=== PATIENT | female | born 1970 | race African-American/Black ===

== ENCOUNTER 2017-04-14 18:05 | Emergency (ER) | payer OTHER ==
[~2017-04-14] VITALS: Ht 162.6 cm; Wt 74.8 kg
[2017-04-14 18:13] VITALS: BP_SYST 192
[2017-04-14] MEDS ORDERED: NITROGLYCERIN 0.4 MG TAB.SUBL SL ONE (18:15)
[2017-04-14] MEDS ORDERED: ASPIRIN 325 MG TABLET PO ONE (18:15)
[2017-04-14] MEDS ORDERED: MORPHINE 4 MG/ML INJ. SYRINGE IVP ONE (18:15)
--- NOTE | 2017-04-14 18:15 | NUR ---
Patient to ER bed 3 to gown for evaluation. Side rails up. Assumed care.
--- NOTE | 2017-04-14 18:17 | NUR ---
ER Veto Pérez at bedside examining patient.
--- NOTE | 2017-04-14 18:18 | NUR ---
Pt presents to ED c/o L sided breast pain 04/03 nonradiating.Mild SOB. Pt has h/o lupus,htn,fibromyalgia. Pt unable to tolertae laying flat.Pain increasing w/palpation.
--- NOTE | 2017-04-14 18:20 | NUR ---
Pain unresolved w/NTG. Dr. Page informed.
--- NOTE | 2017-04-14 18:30 | NUR ---
Pt reports resolving w/morphine. Continuing to monitor.
[2017-04-14 18:53] LABS: CALCIUM 9.6 mg/dL (8.4-11.0); CREATININE 0.87 mg/dL (0.55-1.30); POTASSIUM 3.7 mmol/L (3.5-5.1)
[2017-04-14 18:54] LABS: INR 0.9 (0.8-1.2); PROTHROMBIN TIME 9.9 SECS (9.5-12.5)
[2017-04-14 18:58] LABS: ALBUMIN 3.7 g/dL (3.4-4.8); TOTAL BILIRUBIN 0.3 mg/dL (0.0-1.0); TOTAL PROTEIN, SERUM 7.8 g/dL (6.4-8.3)
--- NOTE | 2017-04-14 19:00 | NUR ---
Pt reports pain 09/03. No acute distress noted.
[2017-04-14 19:02] LABS: BASOPHILS # (AUTO) 0.2 K/uL (0.0-0.2); BASOPHILS % (AUTO) 2.1 % (0.0-2.0); EOSINOPHILS # (AUTO) 0.1 K/uL (0.0-0.4); EOSINOPHILS % (AUTO) 1.3 % (0.0-4.0); HEMOGLOBIN 13.1 g/dL (12.0-16.0); LYMPHOCYTES # (AUTO) 2.1 K/uL (1.0-5.5); LYMPHOCYTES % (AUTO) 22.5 % (20.5-51.5); MEAN CORPUSCULAR HEMOGLOBIN 30 pg (27-31); MEAN CORPUSCULAR HGB CONC 33 % (32-36); MEAN CORPUSCULAR VOLUME 91 fL (79.0-98.0); MONOCYTES # (AUTO) 0.9 K/uL (0.0-1.0); MONOCYTES % (AUTO) 9.5 % (1.7-9.3); NEUTROPHILS # (AUTO) 6.1 K/uL (1.8-7.7); NEUTROPHILS % (AUTO) 64.6 % (40.0-70.0); PLATELET COUNT (AUTO) 275 K/uL (130-430); RED BLOOD CELL COUNT(AUTO) 4.41 MIL/uL (4.2-6.2); RED CELL DISTRIBUTION WIDTH 12.4 % (9.0-15.0); WHITE BLOOD COUNT (AUTO) 9.4 K/uL (4.8-10.8)
--- NOTE | 2017-04-14 19:10 | NUR ---
Received endorsement from BRIEN Hernandez.
--- NOTE | 2017-04-14 19:15 | NUR ---
Patient AOx4, ambulatory, presents to ED with complaint of left chest pain 10/10 x1 hour. Patient states the pain is new onset. Patient has hx of HTN, Lupus, and fibromyalgia. No rash noted to under left breast. Patient states pain level is now a 1/10 post Morphine administration. Patient resting comfortably. No acute distress noted. O2 sat 98% RA.
[2017-04-14 19:49] LABS: BILIRUBIN,URINE NEGATIVE (NEGATIVE); CLARITY/URINE CLEAR (CLEAR); COLOR,URINE YELLOW (YELLOW); GLUCOSE,URINE NEGATIVE (NEGATIVE); KETONES,URINE NEGATIVE (NEGATIVE); LEUKOCYTE ESTERASE ,URINE NEGATIVE (NEGATIVE); NITRITE, URINE NEGATIVE (NEGATIVE); PROTEIN URINE NEGATIVE (NEGATIVE); UROBILINOGEN,URINE 0.2 (0.2-1.0)
[2017-04-14 19:51] LABS: BLOOD, URINE TRACE (NEGATIVE)
[2017-04-14 19:57] LABS: BACTERIA,URINE FEW /HPF (None Seen); MUCUS,URINE None Seen /LPF (None Seen); RBC,URINE 0-3 /HPF (0-3); WBC,URINE 0-3 /HPF (0-3)
[2017-04-14 20:56] VITALS: BP_SYST 146
--- NOTE | 2017-04-14 20:56 | NUR ---
Patient given written and verbal discharge instructions and verbalizes understanding. ER MD discussed with patient the results and treatment provided. Patient in stable condition. ID arm band removed. IV catheter removed intact and dressing applied, no active bleeding. Patient educated on pain management and to follow up with PMD. Pain Scale 0/10. Opportunity for questions provided and answered.
== END 2017-04-14 20:56 | disposition home or self-care (01) ==
LOC: SED 18:05
DX: R07.89 Other chest pain (principal); I10 Essential (primary) hypertension; M79.7 Fibromyalgia; Z90.710 Acquired absence of both cervix and uterus
CPT/HCPCS: 36415; 71010; 80053; 81000; 83880; 84484; 85025; 85379; 85610; 85730; 93005; 96374; 99285; J2270

== ENCOUNTER 2022-01-03 13:25 | Emergency (ER) | payer OTHER ==
[~2022-01-03] VITALS: Ht 162.6 cm; Wt 72.1 kg
[2022-01-03 13:25] VITALS: BP_SYST 138
[2022-01-03 14:17] LABS: BASOPHILS # (AUTO) 0.1 K/uL (0.0-0.2); BASOPHILS % (AUTO) 0.7 % (0.0-2.0); EOSINOPHILS # (AUTO) 0.1 K/uL (0.0-0.4); EOSINOPHILS % (AUTO) 0.9 % (0.0-4.0); HEMATOCRIT 38.7 % (36-48); HEMOGLOBIN 13.2 g/dL (12.0-16.0); LYMPHOCYTES # (AUTO) 1.4 K/uL (1.0-5.5); LYMPHOCYTES % (AUTO) 16.8 % (20.5-51.5); MEAN CORPUSCULAR HEMOGLOBIN 30 pg (27-31); MEAN CORPUSCULAR HGB CONC 34 % (32-36); MEAN CORPUSCULAR VOLUME 88 fL (79.0-98.0); MONOCYTES # (AUTO) 0.6 K/uL (0.0-1.0); MONOCYTES % (AUTO) 6.5 % (1.7-9.3); NEUTROPHILS # (AUTO) 6.4 K/uL (1.8-7.7); NEUTROPHILS % (AUTO) 75.1 % (40.0-70.0); PLATELET COUNT (AUTO) 279 K/uL (130-430); RED BLOOD CELL COUNT(AUTO) 4.39 MIL/uL (4.2-6.2); RED CELL DISTRIBUTION WIDTH 13.7 % (9.0-15.0); WHITE BLOOD COUNT (AUTO) 8.6 K/uL (4.8-10.8)
[2022-01-03 14:26] LABS: CALCIUM 9.1 mg/dL (8.4-11.0); CREATININE 0.81 mg/dL (0.55-1.30); POTASSIUM 3.4 mmol/L (3.5-5.1)
[2022-01-03 14:32] LABS: ALBUMIN 3.7 g/dL (3.4-4.8); TOTAL BILIRUBIN 0.2 mg/dL (0.0-1.0)
[2022-01-03] MEDS ORDERED: MOM PO (15:37)
[2022-01-03 15:42] VITALS: BP_SYST 138
== END 2022-01-03 15:42 | disposition home or self-care (01) ==
LOC: SED 13:25
DX: K59.00 Constipation, unspecified (principal); R10.13 Epigastric pain; I10 Essential (primary) hypertension
CPT/HCPCS: 36415; 76376; 80053; 85025; 85379; 93971; 99284

== ENCOUNTER 2023-06-03 19:01 | Emergency (ER) | payer OTHER ==
[~2023-06-03] VITALS: Ht 162.6 cm; Wt 70.3 kg
[~2023-06-03 19:01] MED LIST: MOM PO
[2023-06-03 19:30] VITALS: BP_SYST 146; PULSE 81; RESP 18; TEMP 97.8; O2SAT 99
[2023-06-03] MEDS ORDERED: AMOX-423 PO (20:06)
[2023-06-03] MEDS ORDERED: POLYEYEO OP (20:06)
[2023-06-03] MEDS ORDERED: BACITRACIN 1 GM OINT TP ONE (20:25)
[2023-06-03] MEDS ORDERED: HYDR-3917 PO (20:37)
[2023-06-03] MEDS ORDERED: HYDROcodone/ACETAMIN 5-325 MG TAB (NORCO/ VICODIN) PO ONE (20:45)
[2023-06-03 20:48] VITALS: TEMP 97.9
[2023-06-03 20:54] VITALS: BP_SYST 143; PULSE 79; RESP 17; O2SAT 98
== END 2023-06-03 20:53 | disposition home or self-care (01) ==
LOC: SED 19:01
DX: T22.212A Burn of second degree of left forearm, initial encounter (principal); I10 Essential (primary) hypertension; Z79.899 Other long term (current) drug therapy; X08.8XXA Exposure to other specified smoke, fire and flames, initial encounter; Y93.89 Activity, other specified; Y92.89 Other specified places as the place of occurrence of the external cause; Y99.8 Other external cause status
CPT/HCPCS: 99283